=== PATIENT | male | born 1975 | race American Indian/Alaskan Native ===

== ENCOUNTER 2017-02-06 19:50 | Emergency (ER) | payer OTHER ==
[2017-02-06] MEDS ORDERED: ZOFRAN ODT ONE (20:50)
[2017-02-06] MEDS ORDERED: ZOFRAN ONE (20:53)
[2017-02-06] MEDS ORDERED: ZOFRAN IV ONE ×2 (21:32→21:42)
[2017-02-06 21:33] LABS: Basophils % (Auto) 0.4 % (0.0-1.8); Hematocrit 49.9 % (35.5-45.6); Hemoglobin 16.5 gm/dl (11.8-15.2); Mean Corpuscular HGB Conc 33 % (32-34); Mean Corpuscular Hemoglobin 30 pg (28-32); Mean Corpuscular Volume 90 fl (84-94); Platelet Count 214 K/mm3 (140-440); Red Blood Count 5.56 M/mm3 (3.65-5.03); Red Cell Distribution Width 13.1 % (13.2-15.2); White Blood Count 9.7 K/mm3 (4.5-11.0)
[2017-02-06] MEDS ORDERED: REGLAN IV ONE (21:42)
[2017-02-06] MEDS ORDERED: NACL 0.9% 1000 ML 1,000 ML IV ONE (21:42)
[2017-02-06] MEDS ORDERED: MORPHINE IV ONE (21:43)
--- NOTE | 2017-02-06 22:10 | Emergency Department Report ---
ED Abdominal Pain HPI - General Chief Complaint: Abdominal Pain Stated Complaint: ELEVATED BLOOD SUGAR Time Seen by Provider: 02/06/17 21:48 Source: patient Mode of arrival: Ambulatory Limitations: No Limitations - History of Present Illness Initial Comments: 42 YO DM II HER WITH N/V FOR 3 DAYS. PT HAD BEEN A DIABETIC SINCE 2003 AND HAS MULTIPLE EPISODES OF GASTROPARESIS. HE FEEL THIS IS WHAT IS HAPPENING NOW. HE HAS ABDOMINAL PAIN AND N/V THAT IS INTRACTABLE. DENIES F/CHILL/SOB Severity scale (0 -10): 10 - Related Data Previous Rx's Medication Instructions Recorded Last Taken Type Metoclopramide [Reglan] 10 mg PO TID #21 tab 02/07/17 Unknown Rx Oxycodone HCl/Acetaminophen 1 each PO Q6HR PRN #14 tablet 02/07/17 Unknown Rx [Percocet 7.5/325 mg] Allergies Allergy/AdvReac Type Severity Reaction Status Date / Time No Known Allergies Allergy Verified 02/06/17 20:49 ED Review of Systems ROS: Stated complaint: ELEVATED BLOOD SUGAR Other details as noted in HPI Constitutional: denies: chills, fever Eyes: denies: eye pain, eye discharge, vision change ENT: denies: ear pain, throat pain Respiratory: denies: cough, shortness of breath, wheezing Cardiovascular: denies: chest pain, palpitations Endocrine: no symptoms reported Gastrointestinal: nausea, vomiting. denies: diarrhea Genitourinary: denies: urgency, dysuria Musculoskeletal: denies: back pain, joint swelling, arthralgia Skin: denies: rash, lesions Neurological: denies: headache, weakness, paresthesias Psychiatric: denies: anxiety, depression Hematological/Lymphatic: denies: easy bleeding, easy bruising ED Past Medical Hx - Past Medical History Previous Medical History?: Yes Hx Diabetes: Yes Additional medical history: DM II, GASTROPERASIS-CHRONIC - Surgical History Additional Surgical History: HERNIA- UMBILICAL REPAIR - Social History Smoking Status: Current Every Day Smoker Substance Use Type: None - Medications Home Medications: Home Medications Medication Instructions Recorded Confirmed Last Taken Type Metoclopramide [Reglan] 10 mg PO TID #21 tab 02/07/17 Unknown Rx Oxycodone HCl/Acetaminophen 1 each PO Q6HR PRN #14 tablet 02/07/17 Unknown Rx [Percocet 7.5/325 mg] ED Physical Exam - General Limitations: No Limitations General appearance: alert, in no apparent distress - Head Head exam: Present: atraumatic, normocephalic - Eye Eye exam: Present: normal appearance, EOMI - ENT ENT exam: Present: mucous membranes moist - Neck Neck exam: Present: normal inspection - Respiratory Respiratory exam: Present: normal lung sounds bilaterally. Absent: respiratory distress - Cardiovascular Cardiovascular Exam: Present: regular rate, normal rhythm. Absent: systolic murmur, diastolic murmur, rubs, gallop - GI/Abdominal GI/Abdominal exam: Present: soft, tenderness (DIFFUSE), guarding. Absent: distended, rebound, rigid - Rectal Rectal exam: Present: deferred - Extremities Exam Extremities exam: Present: normal inspection, full ROM - Back Exam Back exam: Present: normal inspection, full ROM - Neurological Exam Neurological exam: Present: alert, oriented X3, CN II-XII intact - Psychiatric Psychiatric exam: Present: normal affect, normal mood - Skin Skin exam: Present: warm, dry, intact, normal color. Absent: rash ED Course Vital Signs 02/06/17 02/06/17 02/06/17 20:24 20:31 21:54 Temperature 98.2 F 98.2 F Pulse Rate 120 H 121 H 90 Respiratory 18 18 Rate Blood Pressure 130/91 130/91 Blood Pressure 130/91 [Left] O2 Sat by Pulse 99 99 Oximetry 02/06/17 02/06/17 02/06/17 21:55 22:00 22:05 Temperature 98.1 F Pulse Rate 105 H 93 H 99 H Respiratory 34 H 15 17 Rate Blood Pressure 135/102 135/102 Blood Pressure 152/97 [Left] O2 Sat by Pulse 99 Oximetry 02/06/17 02/06/17 02/06/17 22:07 22:09 22:11 Temperature Pulse Rate 86 72 57 L Respiratory 15 13 11 L Rate Blood Pressure 135/102 135/102 135/102 Blood Pressure [Left] O2 Sat by Pulse 98 97 98 Oximetry 02/06/17 02/06/17 02/06/17 22:13 22:15 22:16 Temperature Pulse Rate 96 H 84 80 Respiratory 16 13 14 Rate Blood Pressure 135/102 129/103 129/103 Blood Pressure [Left] O2 Sat by Pulse 95 93 95 Oximetry 02/06/17 02/06/17 02/06/17 22:19 22:21 22:23 Temperature Pulse Rate 66 88 95 H Respiratory 10 L 11 L 16 Rate Blood Pressure 129/103 129/103 129/103 Blood Pressure [Left] O2 Sat by Pulse 98 98 98 Oximetry 02/06/17 02/06/17 02/06/17 22:25 22:27 22:29 Temperature Pulse Rate 68 67 72 Respiratory 20 11 L 8 L Rate Blood Pressure 129/103 129/103 129/103 Blood Pressure [Left] O2 Sat by Pulse 96 94 95 Oximetry 02/06/17 02/06/17 02/06/17 22:30 22:33 22:35 Temperature Pulse Rate 64 81 76 Respiratory 12 10 L 9 L Rate Blood Pressure 138/92 138/92 135/102 Blood Pressure [Left] O2 Sat by Pulse 94 96 95 Oximetry 02/06/17 02/06/17 02/06/17 22:37 22:39 22:41 Temperature Pulse Rate 80 82 80 Respiratory 11 L 9 L 10 L Rate Blood Pressure 135/102 135/102 135/102 Blood Pressure [Left] O2 Sat by Pulse 95 96 94 Oximetry 02/06/17 02/06/17 02/06/17 22:43 22:45 22:47 Temperature Pulse Rate 91 H 86 81 Respiratory 8 L 13 11 L Rate Blood Pressure 135/102 128/91 128/91 Blood Pressure [Left] O2 Sat by Pulse 95 91 94 Oximetry 02/06/17 02/06/17 02/06/17 22:49 22:51 22:53 Temperature Pulse Rate 69 77 79 Respiratory 9 L 11 L 11 L Rate Blood Pressure 128/91 128/91 128/91 Blood Pressure [Left] O2 Sat by Pulse 95 95 95 Oximetry 02/06/17 02/06/17 02/06/17 22:55 22:57 22:59 Temperature Pulse Rate 79 78 81 Respiratory 11 L 10 L 19 Rate Blood Pressure 128/91 128/91 137/93 Blood Pressure [Left] O2 Sat by Pulse 95 95 98 Oximetry 02/06/17 02/06/17 02/06/17 23:00 23:03 23:05 Temperature Pulse Rate 79 91 H 93 H Respiratory 11 L 10 L 11 L Rate Blood Pressure 137/93 137/93 137/93 Blood Pressure [Left] O2 Sat by Pulse 95 98 Oximetry 02/06/17 02/06/17 02/06/17 23:07 23:09 23:11 Temperature Pulse Rate 88 82 87 Respiratory 13 10 L 11 L Rate Blood Pressure 137/93 137/93 137/93 Blood Pressure [Left] O2 Sat by Pulse 98 97 98 Oximetry 02/06/17 02/06/17 02/06/17 23:13 23:15 23:17 Temperature Pulse Rate 85 73 47 L Respiratory 11 L 10 L 10 L Rate Blood Pressure 137/93 135/70 135/70 Blood Pressure [Left] O2 Sat by Pulse 99 97 98 Oximetry 02/06/17 02/06/17 02/06/17 23:19 23:21 23:23 Temperature Pulse Rate 58 L 50 L 47 L Respiratory 11 L 9 L 10 L Rate Blood Pressure 135/70 135/70 135/70 Blood Pressure [Left] O2 Sat by Pulse 97 98 97 Oximetry 02/06/17 02/06/17 02/06/17 23:25 23:27 23:29 Temperature Pulse Rate 56 L 54 L 58 L Respiratory 11 L 11 L 13 Rate Blood Pressure 135/70 135/70 135/70 Blood Pressure [Left] O2 Sat by Pulse 98 97 98 Oximetry 02/06/17 02/06/17 02/06/17 23:31 23:33 23:35 Temperature Pulse Rate 66 58 L 66 Respiratory 12 13 13 Rate Blood Pressure 113/53 113/53 113/53 Blood Pressure [Left] O2 Sat by Pulse 96 97 97 Oximetry 02/06/17 02/06/17 02/06/17 23:37 23:39 23:41 Temperature Pulse Rate 78 67 76 Respiratory 11 L 13 13 Rate Blood Pressure 113/53 113/53 113/53 Blood Pressure [Left] O2 Sat by Pulse 98 98 98 Oximetry 02/06/17 02/06/17 02/06/17 23:43 23:45 23:47 Temperature Pulse Rate 83 93 H 85 Respiratory 13 13 13 Rate Blood Pressure 113/53 107/64 107/64 Blood Pressure [Left] O2 Sat by Pulse 98 97 98 Oximetry 02/06/17 02/06/17 02/06/17 23:49 23:51 23:53 Temperature Pulse Rate 91 H 97 H 72 Respiratory 13 12 13 Rate Blood Pressure 107/64 107/64 107/64 Blood Pressure [Left] O2 Sat by Pulse 99 97 97 Oximetry 02/06/17 02/06/17 02/07/17 23:55 23:57 00:00 Temperature Pulse Rate 76 84 89 Respiratory 13 12 13 Rate Blood Pressure 107/64 107/64 114/69 Blood Pressure [Left] O2 Sat by Pulse 97 98 97 Oximetry ED Medical Decision Making - Lab Data Result diagrams: 02/06/17 21:00 02/06/17 21:00 Critical care attestation.: If time is entered above; I have spent that time in minutes in the direct care of this critically ill patient, excluding procedure time. ED Disposition Clinical Impression: Gastroparesis, Marijuana abuse Abdominal pain Qualifiers: Abdominal location: unspecified location Qualified Code(s): R10.9 - Unspecified abdominal pain Nausea & vomiting Qualifiers: Vomiting type: bilious vomiting Qualified Code(s): R11.14 - Bilious vomiting Disposition: DC-01 TO HOME OR SELFCARE Is pt being admited?: No Does the pt Need Aspirin: No Condition: Stable Instructions: Acute Nausea and Vomiting (ED), Diabetic Hyperglycemia (ED) Prescriptions: Metoclopramide [Reglan] 10 mg PO TID #21 tab Oxycodone HCl/Acetaminophen [Percocet 7.5/325 mg] 1 each PO Q6HR PRN #14 tablet PRN Reason: Pain
[2017-02-06 22:12] LABS: Alanine Aminotransferase 16 units/L (7-56); Albumin 4.3 g/dL (3.9-5); Albumin/Globulin Ratio 1.2 %; Alkaline Phosphatase 91 units/L (35-129); Anion Gap 25 mmol/L; BUN/Creatinine Ratio 24; Blood Urea Nitrogen 26 mg/dL (9-20); Calcium 9.7 mg/dL (8.4-10.2); Carbon Dioxide 28 mmol/L (22-30); Chloride 92.4 mmol/L (98-107); Glucose 325 mg/dL (75-100); Lipase 14 units/L (13-60); Potassium 4.5 mmol/L (3.6-5.0); Sodium 141 mmol/L (137-145); Total Protein 7.8 g/dL (6.3-8.2)
--- NOTE | 2017-02-06 22:49 | XRay Report ---
FINAL REPORT PROCEDURE: XR ABD SERIES W CXR 1V TECHNIQUE: Chest x-ray and two views of the abdomen are obtained HISTORY: VOMITING, H/O GASTROPERESIS COMPARISON: No prior studies are available for comparison. FINDINGS: The heart is normal in size. There is no focal infiltrate, pneumothorax or pleural effusion. No free intraperitoneal air is seen. No definite constipation or evidence of bowel obstruction is seen. No suspicious calcifications are seen. No ileus or gastric dilation is seen. IMPRESSION: No abnormalities are seen.
[2017-02-06 23:07] LABS: Urine Drugs of Abuse Note Disclamer
[2017-02-06 23:19] LABS: Bilirubin,Urine NEG (Negative); Blood,Urine NEG (Negative); Ketones,Urine 80 mg/dL (Negative); Leukocyte Esterase,Urine NEG (Negative); Mucus,Urine FEW /HPF; Nitrite,Urine NEG (Negative); WBC,Urine < 1.0 /HPF (0.0-6.0)
[2017-02-06 23:44] LABS: Creatine Kinase MB < 1.0 ng/mL (0.0-4.0)
[2017-02-06 23:45] LABS: Creatine Kinase 84 units/L (55-170)
--- NOTE | 2017-02-07 00:40 | History and Physical Report ---
History of Present Illness Chief complaint: My stomach hurts History of present illness: 42 YO Male with DM, Medication Noncompliance, Nicotine Dependence, Gastroparesis presents to ED for evaluation of nausea and vomiting. Pt seen and evaluated in ED and treated with anti emetic therapy and well as insulin therapy. Pt acknowledges noncompliance with insulin even though he has the medication and supplies at home. Pt states that his last Hgb A1c was 12. Pt underwent CT abdomen pelvis, and serial physical exams which were unremarkable, and no acute findings on CT abdomen and pelvis. Pt counseled regarding medication noncompliance. Pt acknowledges understanding instructions. Pt medically optimized and back to usual state of health, and subsequently discharged home and instructed to f/u pc 1wk, with blood glucose log 3x daily. Past History Past Medical History: diabetes Past Surgical History: hernia repair Social history: single, smoking. denies: alcohol abuse, prescription drug abuse , IV drug use Family history: hypertension Medications and Allergies Allergies Allergy/AdvReac Type Severity Reaction Status Date / Time No Known Allergies Allergy Verified 02/06/17 20:49 Home Medications Medication Instructions Recorded Confirmed Last Taken Type Metoclopramide [Reglan] 10 mg PO TID #21 tab 02/07/17 Unknown Rx Oxycodone HCl/Acetaminophen 1 each PO Q6HR PRN #14 tablet 02/07/17 Unknown Rx [Percocet 7.5/325 mg] Review of Systems Constitutional: no weight loss, no weight gain, no fever, no chills Ears, nose, mouth and throat: no ear pain, no ear discharge, no tinnitis, no decreased hearing, no nose pain Cardiovascular: no chest pain, no orthopnea, no palpitations, no rapid/ irregular heart beat, no edema, no syncope, no lightheadedness, no shortness of breath Respiratory: no cough, no cough with sputum, no excessive sputum, no hemoptysis , no shortness of breath Gastrointestinal: nausea, vomiting, no abdominal pain, no change in bowel habits , no hematemesis, no hematochezia, no loss of appetite, no early satiety, no indigestion, no excessive gas Genitourinary Male: no dysuria, no hematuria, no flank pain, no discharge, no urinary frequency Rectal: no pain, no incontinence, no bleeding Musculoskeletal: no neck stiffness, no neck pain, no shooting arm pain, no arm numbness/tingling, no low back pain Integumentary: no rash, no pruritis, no redness, no sores, no wounds, no jaundice Neurological: no head injury, no transient paralysis, no paralysis, no weakness , no parathesias, no numbness, no tingling Psychiatric: no anxiety, no memory loss, no change in sleep habits, no sleep disturbances, no insomnia, no hypersomnia, no change in appetite, no change in libido Endocrine: no cold intolerance, no heat intolerance, no polyphagia, no excessive thirst, no polydipsia, no excessive sweating, no flushing, no weight change Hematologic/Lymphatic: no easy bruising, no easy bleeding Allergic/Immunologic: no urticaria, no allergic rhinitis, no wheezing Exam - Constitutional Vitals: Temp Pulse Resp BP Pulse Ox 98.1 F 97 H 14 115/84 98 02/06/17 22:05 02/07/17 00:29 02/07/17 00:29 02/07/17 00:29 02/07/17 00:29 General appearance: Present: no acute distress, well-nourished - EENT Eyes: Present: PERRL ENT: hearing intact, clear oral mucosa - Neck Neck: Present: supple, normal ROM - Respiratory Respiratory effort: normal Respiratory: bilateral: CTA - Cardiovascular Heart Sounds: Present: S1 & S2. Absent: rub, click - Extremities Extremities: pulses symmetrical, No edema Peripheral Pulses: within normal limits - Abdominal General gastrointestinal: Present: soft, non-tender, non-distended, normal bowel sounds Male genitourinary: Present: normal - Integumentary Integumentary: Present: clear, warm, dry - Musculoskeletal Musculoskeletal: gait normal, strength equal bilaterally - Psychiatric Psychiatric: appropriate mood/affect, intact judgment & insight - Neurologic Neurologic: CNII-XII intact, moves all extremities Results - Labs CBC & Chem 7: 02/06/17 21:00 02/06/17 21:00 Labs: Abnormal lab results 02/06/17 02/06/17 02/06/17 Range/Units 20:32 21:00 21:00 RBC 5.56 H (3.65-5.03) M/mm3 Hgb 16.5 H (11.8-15.2) gm/dl Hct 49.9 H (35.5-45.6) % RDW 13.1 L (13.2-15.2) % Seg Neutrophils % 77.6 H (40.0-70.0) % Chloride 92.4 L (98-107) mmol/L BUN 26 H (9-20) mg/dL Glucose 325 H (75-100) mg/dL POC Glucose 299 H (70-105) Ur Specific [place] (1.003-1.030) 02/06/17 02/07/17 Range/Units 23:04 00:12 RBC (3.65-5.03) M/mm3 Hgb (11.8-15.2) gm/dl Hct (35.5-45.6) % RDW (13.2-15.2) % Seg Neutrophils % (40.0-70.0) % Chloride (98-107) mmol/L BUN (9-20) mg/dL Glucose (75-100) mg/dL POC Glucose 259 H (70-105) Ur Specific [place] 1.044 H (1.003-1.030) Assessment and Plan - Patient Problems (1) Gastroparesis Status: Acute Plan to address problem: anti emetic therapy, frequent small meals, ADA diet, ambulation, CT abdomen pelvis, (2) Nausea & vomiting Status: Acute Qualifiers: Vomiting type: bilious vomiting Qualified Code(s): R11.14 - Bilious vomiting Plan to address problem: Antiemetic therapy,
[2017-02-07] MEDS ORDERED: NACL ONE (01:08)
--- NOTE | 2017-02-07 01:53 | Cat Scan Report ---
FINAL REPORT EXAM: CT ABDOMEN PELVIS W CON HISTORY: nausea,vomiting TECHNIQUE: Routine axial imaging was obtained of the abdomen and pelvis following the intravenous injection of 100 cc of Omnipaque 350. Oral Gastroview was also administered. Sagittal and coronal reconstructions were reviewed. FINDINGS: The lung bases are clear. Pleural fluid is not seen. The liver, gallbladder, pancreas, spleen, and adrenal glands appear normal. The kidneys enhance normally. The vascular structures enhance normally. The bowel loops are normal in caliber and course. There is no evidence of free fluid or adenopathy. The appendix is not seen. In the pelvis the prostate gland and bladder appear normal. The skeletal structures otherwise well maintained. IMPRESSION: No acute process in the abdomen and pelvis.
[2017-02-07 02:37] VITALS: BP 134/101
== END 2017-02-07 02:37 | disposition home or self-care (01) ==
LOC: ED 19:50
DX: E11.43 Type 2 diabetes mellitus with diabetic autonomic (poly)neuropathy (principal); K31.84 Gastroparesis; R10.84 Generalized abdominal pain; R11.14 Bilious vomiting; F17.200 Nicotine dependence, unspecified, uncomplicated
CPT/HCPCS: 36415; 74022; 74177; 80053; 80307; 81001; 82550; 82553; 82962; 83690; 84484; 85025; 96361; 96372; 96374; 96375; 99285; G0480; J2270; J2405; J2765; J7030; Q9967; 80320; J1815; Q0162